=== PATIENT | female | born 1945 | race Caucasian/White ===

== ENCOUNTER 2016-08-26 22:05 | Emergency (ER) | payer MEDICARE ==
--- NOTE | 2016-08-27 00:54 | ERNOTE ---
Medical Problem HPI - General Chief Complaint: General Assessment Time Seen by Provider: 08/27/16 00:53 Source: patient Exam Limitations: no limitations - Immun/Allergies/Home Medications Immunizations: IMMUNIZATION HX Immunizations Up to Date Yes History of Influenza Vaccine Yes Hx Pneumococcal Vaccination Yes Allergies/Adverse Reactions: Allergies Latex, Natural Rubber Allergy (Unknown, Verified 07/20/15 13:24) acetaminophen [From Percocet] Adverse Reaction (Mild, Verified 07/20/15 13:24) Vomiting codeine Adverse Reaction (Mild, Verified 07/20/15 13:24) n/v hydrocodone bitartrate [From Vicodin] Adverse Reaction (Mild, Verified 07/20/15 13:24) n/v morphine Adverse Reaction (Mild, Verified 07/20/15 13:24) dry heaves oxycodone HCl [From Percocet] Adverse Reaction (Mild, Verified 07/20/15 13:24) Vomiting propoxyphene HCl [From Darvon] Adverse Reaction (Mild, Verified 07/20/15 13:24) n/v tramadol Adverse Reaction (Mild, Verified 07/20/15 13:24) n/v Home Medications: HOME MEDICATIONS ALPRAZolam [Xanax] 0.25 mg PO BID PRN 06/01/14 [Last Taken 06/26/14] Albuterol Sulfate [Proair Hfa] 2 puff IH Q4H PRN 06/01/14 [Last Taken Unknown] Gabapentin [Neurontin] 300 mg PO TID 06/01/14 [Last Taken 06/26/14] Ibuprofen [Motrin] 800 mg PO DAILY PRN 06/01/14 [Last Taken Unknown] Losartan Potassium [Cozaar] 50 mg PO DAILY 06/01/14 [Last Taken 06/26/14] Metoprolol Succinate [Toprol Xl] 100 mg PO DAILY 06/01/14 [Last Taken 06/27/14] Omeprazole [Prilosec] 40 mg PO BID 06/01/14 [Last Taken 06/26/14] Pravastatin Sodium [Pravachol] 40 mg PO HS 06/01/14 [Last Taken 06/26/14] amLODIPine BESYLATE [Norvasc] 10 mg PO DAILY 06/01/14 [Last Taken 06/26/14] Nabumetone 750 mg PO BID #20 tablet 08/27/16 [Last Taken Unknown] - History of Present History Narrative: Pt states she has had right lower rib pain for about a month. She denies known injury Timing: constant, getting worse Severity: moderate Review of Systems - Review of Systems Constitutional: Absent: recent illness, fever EYE: Present: no symptoms reported ENT: Present: no symptoms reported Respiratory: Present: cough. Absent: shortness of breath Cardiology: Absent: chest pain, palpitations Gastrointestinal/Abdominal: Absent: nausea, vomiting Genitourinary: Present: no symptoms reported Musculoskeletal: Present: back pain, muscle pain Skin: Present: no symptoms reported Neurological: Present: no symptoms reported Endocrine: Present: no symptoms reported Hematologic/Lymphatic: Present: no symptoms reported Psych: Present: no symptoms reported - Patient's Past Medical History Patient History - Medical: Chronic Pain, Other Patient History - Cardiac/Respiratory: COPD Patient History - Cancer: No Hx of Cancer Patient History - Surgical Procedures: Appendectomy, Back Surgery, Cholecystectomy, Hysterectomy Patient History - Other: None - Social History Living Situations: home Psych History: No pertinent hx Smoking Status: Current every day smoker Patient requests Smoking Cessation Consult: No Initiate information on Smoking Cessation: No Alcohol Use: none Drug Use: none - Immunizations Immunizations Up to Date: Yes Hx Pneumococcal Vaccination: Yes History of Influenza Vaccine: Yes Physical Exam - Physical Exam General Appearance: Present: wd/wn, alert, mild distress Eye Exam: Normal inspection: bilateral Neck: Present: normal inspection, nontender, supple Respiratory: Present: no respiratory distress, no accessory muscle use, chest tenderness - right lower condral mass and rib 8/9 laterally are moderately tender Cardiovascular/Chest: Present: regular rate, rhythm, no murmur Back Exam: Present: no vertebral tenderness, decreased range of motion, muscle spasm - right lower ribs Extremity Exam: Present: normal inspection, normal range of motion, no edema Neurological Exam: Present: alert, oriented, normal mood/affect, no motor/ sensory deficits Skin Exam: Present: normal color, warm/dry Lymphatic Exam: Present: no adenopathy ED Progress - Vital Signs Vital Signs: Vital Signs 08/26/16 08/26/16 22:19 23:20 Temperature 36.5 C Pulse Rate 59 L 54 L Respiratory 20 18 Rate Blood Pressure 154/81 118/67 O2 Sat by Pulse 96 96 Oximetry - Progress/Reassessment Chief Complaint: General Assessment Departure - Departure Clinical Impression: Costochondritis, acute Disposition: Home Follow Up Needed Condition: Good Instructions: Costochondritis, [id number] Additional Instructions: Stop the ibuprofen and begin taking the prescription medication regularly. See your regular doctor in 1-2 weeks to see how well you are progressing Prescriptions: Nabumetone 750 mg PO BID #20 tablet
[2016-08-27] MEDS ORDERED: KETOROLAC TROMETHAMINE 60 MG/2 ML VIAL IM ONE ×2 (01:11→01:21)
[2016-08-27 01:23] VITALS: BP 138/70
== END 2016-08-27 01:25 | disposition home or self-care (01) ==
LOC: ER 22:05
DX: M94.0 Chondrocostal junction syndrome [Tietze] (principal); J44.9 Chronic obstructive pulmonary disease, unspecified; F17.200 Nicotine dependence, unspecified, uncomplicated

== ENCOUNTER 2016-12-16 16:50 | Emergency (ER) | payer MEDICARE ==
[2016-12-16 17:05] VITALS: BP 144/73
--- NOTE | 2016-12-16 17:33 | ERNOTE ---
Integumentary HPI - Narrative Date of Service: 12/16/16 - General Presenting Symptoms: other - Bee sting Time Seen by Provider: 12/16/16 17:16 Source: patient, RN notes reviewed Exam Limitations: no limitations - Immun/Allergies/Home Medications Immunizations: IMMUNIZATION HX Immunizations Up to Date Yes History of Influenza Vaccine Yes Hx Pneumococcal Vaccination Yes Allergies/Adverse Reactions: Allergies Allergy/AdvReac Type Severity Reaction Status Date / Time Latex, Natural Rubber Allergy Unknown Verified 12/16/16 17:06 acetaminophen [From Percocet] AdvReac Mild Vomiting Verified 12/16/16 17:06 codeine AdvReac Mild n/v Verified 12/16/16 17:06 hydrocodone bitartrate AdvReac Mild n/v Verified 12/16/16 17:06 [From Vicodin] morphine AdvReac Mild dry heaves Verified 12/16/16 17:06 oxycodone HCl [From Percocet] AdvReac Mild Vomiting Verified 12/16/16 17:06 propoxyphene HCl AdvReac Mild n/v Verified 12/16/16 17:06 [From Darvon] tramadol AdvReac Mild n/v Verified 12/16/16 17:06 Home Medications: HOME MEDICATIONS ALPRAZolam [Xanax] 0.25 mg PO BID PRN 06/01/14 [Last Taken 06/26/14] Albuterol Sulfate [Proair Hfa] 2 puff IH Q4H PRN 06/01/14 [Last Taken Unknown] Gabapentin [Neurontin] 300 mg PO TID 06/01/14 [Last Taken 06/26/14] Ibuprofen [Motrin] 800 mg PO DAILY PRN 06/01/14 [Last Taken Unknown] Metoprolol Succinate [Toprol Xl] 100 mg PO DAILY 06/01/14 [Last Taken 06/27/14] Omeprazole [Prilosec] 40 mg PO BID 06/01/14 [Last Taken 06/26/14] Pravastatin Sodium [Pravachol] 40 mg PO HS 06/01/14 [Last Taken 06/26/14] amLODIPine BESYLATE [Norvasc] 10 mg PO DAILY 06/01/14 [Last Taken 06/26/14] Pravastatin Sodium 40 mg PO DAILY 12/16/16 [Last Taken Unknown] - History of Present Illness Narrative: 70 year old female ambulatory to the ED for bee stings that occurred earlier today while she was doing yard work. She was stung in the left axilla and near the left elbow. She took Benadryl. She became concerned a little while ago when she had a tingling sensation shoot from her arm into the left side of her face. This has resolved. She denies any difficulty breathing or sensation of edema in her mouth or airway. Location: Reports: upper extremity - Left Quality: Reports: painful Exposure: Reports: bee/wasp sting Associated Symptoms: Denies: blisters, rash, hives, swelling/mass/lumps, edema, fever Prior Treatment: Denies: recently seen Review of Systems - Review of Systems Constitutional: Absent: recent illness, fatigue, malaise EYE: Present: no symptoms reported ENT: Absent: nose congestion, throat swelling Respiratory: Absent: shortness of breath, cough, wheezing, stridor Cardiology: Absent: chest pain, syncope Gastrointestinal/Abdominal: Absent: nausea, vomiting Genitourinary: Present: no symptoms reported Musculoskeletal: Absent: joint pain, joint swelling Skin: Present: lesions. Absent: rash, lumps Neurological: Absent: headache, dizziness/light-headedness, weakness, numbness Endocrine: Present: no symptoms reported Hematologic/Lymphatic: Present: no symptoms reported Psych: Present: no symptoms reported - Patient's Past Medical History Patient History - Medical: Chronic Pain, Other Patient History - Cardiac/Respiratory: COPD, Hypertension Patient History - Cancer: No Hx of Cancer Patient History - Surgical Procedures: Appendectomy, Back Surgery, Cholecystectomy, Hysterectomy Patient History - Other: None LMP (females 10-50): post - Social History Living Situations: home Psych History: Hx of Anxiety, Current tx/ever been on anti-depressants or anti- anxiety meds Smoking Status: Current every day smoker Alcohol Use: none Drug Use: none - Immunizations Immunizations Up to Date: Yes Hx Pneumococcal Vaccination: Yes History of Influenza Vaccine: Yes Physical Exam - Physical Exam General Appearance: Present: wd/wn, alert, no apparent distress Head Exam: Present: normal inspection. Absent: swelling Eye Exam: Normal inspection: bilateral Ears, Nose, Throat: Present: normal ENT inspection, normal pharynx. Absent: pharyngeal swelling Neck: Present: normal inspection, nontender, supple Respiratory: Present: no respiratory distress, normal breath sounds, no accessory muscle use, lungs clear Cardiovascular/Chest: Present: regular rate, rhythm, no murmur Extremity Exam: Present: normal inspection, normal range of motion, no edema Neurological Exam: Present: alert, oriented, normal mood/affect, no motor/ sensory deficits Skin Exam: Present: normal color, warm/dry, other - Erythematous papule in left axilla and near left elbow, appearance consistent with bee sting ED Progress - Vital Signs Patient's Vital Signs:: I have reviewed the patient's vital signs. Vital Signs: Vital Signs 12/16/16 16:58 Temperature 36.7 C Pulse Rate 60 Respiratory 16 Rate Blood Pressure 144/73 O2 Sat by Pulse 97 Oximetry - Progress/Reassessment Chief Complaint: Insect Bite Progress:: Unchanged Plan - Plan Plan: Reassured patient that her current symptoms are normal and not any indication of an allergy to bees. Uncertain of etiology of the tingling sensation she had in her face, but it does not sound as thought it is indicative of anything concerning. Instructed to use ice and use topical benadryl and steroid creams. Departure Clinical Impression: Bee sting Qualifiers: Encounter type: initial encounter Injury intent: undetermined intent Qualified Code(s): T63.444A - Toxic effect of venom of bees, undetermined, initial encounter - Departure Disposition: Home self-care Condition: Good Instructions: Bee, Wasp, or Hornet Sting Additional Instructions: Ice to effected areas as needed Benadryl cream and cortisone 10 cream will help pain and itching resolve faster Referrals: Nelli Voss MD [Primary Care Provider] -
== END 2016-12-16 17:45 | disposition home or self-care (01) ==
LOC: ER 16:50
DX: T63.444A Toxic effect of venom of bees, undetermined, initial encounter (principal); F17.200 Nicotine dependence, unspecified, uncomplicated; J44.9 Chronic obstructive pulmonary disease, unspecified; I10 Essential (primary) hypertension; F41.9 Anxiety disorder, unspecified

== ENCOUNTER 2019-05-11 10:07 | Observation (INO) ==
--- NOTE | 2019-05-11 10:43 | ERNOTE ---
Back Pain ER HPI Date of Service: 05/11/19 Presenting Symptoms: injury/pain to back Time Seen by Provider: 05/11/19 10:42 Source: patient, family, RN notes reviewed, past records Exam Limitations: no limitations Immunizations: IMMUNIZATION HX Immunizations Up to Date Yes History of Influenza Vaccine Yes Hx Pneumococcal Vaccination No Allergies/Adverse Reactions: Allergies Latex, Natural Rubber Allergy (Mild, Verified 03/21/19 13:47) Hives, itching gabapentin Adverse Reaction (Intermediate, Verified 03/21/19 13:47) Hallucinations codeine Adverse Reaction (Mild, Verified 03/21/19 13:47) n/v hydrocodone bitartrate [From Vicodin] Adverse Reaction (Mild, Verified 03/21/19 13:47) n/v meloxicam Adverse Reaction (Mild, Verified 03/21/19 13:47) aggravated pain morphine Adverse Reaction (Mild, Verified 03/21/19 13:47) dry heaves oxycodone HCl [From Percocet] Adverse Reaction (Mild, Verified 03/21/19 13:47) Vomiting prednisone Adverse Reaction (Mild, Verified 03/21/19 13:47) "thought her head was going to blow off" propoxyphene HCl [From Darvon] Adverse Reaction (Mild, Verified 03/21/19 13:47) n/v tramadol Adverse Reaction (Mild, Verified 03/21/19 13:47) n/v Home Medications: HOME MEDICATIONS Acetaminophen [Tylenol] 1,000 mg PO Q4H PRN 06/12/18 [Last Taken 06/11/18 20:00 1000 mg] albuterol sulfate 90 mcg/actuation aerosol inhaler 2 puff INHALATION Q4H PRN #1 inhaler 10/25/18 [Last Taken 12/05/18] metoprolol succinate 100 mg tablet,extended release 24 hr 100 mg PO DAILY #90 tab 12/06/18 [Last Taken Unknown] pravastatin 40 mg tablet 40 mg PO HS #90 tab 12/06/18 [Last Taken Unknown] potassium chloride 10 mEq tablet,extended release 10 meq PO DAILY #90 tab 12/22/18 [Last Taken Unknown] amlodipine 10 mg tablet 10 mg PO DAILY #90 tab 12/27/18 [Last Taken Unknown] hydrochlorothiazide 25 mg tablet See Rx Instructions .ROUTE .COMPLEX #30 tablet 01/26/19 [Last Taken Unknown] levothyroxine 50 mcg tablet 50 mcg PO DAILY #90 tab 03/07/19 [Last Taken Unknown] losartan 100 mg tablet 100 mg PO HS #90 tab 03/21/19 [Last Taken Unknown] loratadine 10 mg tablet 10 mg PO DAILY #30 tab 03/28/19 [Last Taken Unknown] alprazolam 0.25 mg tablet 0.25 mg PO BID PRN #30 tab 04/20/19 [Last Taken Unknown] omeprazole 40 mg capsule,delayed release 40 mg PO DAILY #90 cap 05/02/19 [Last Taken Unknown] Cyclobenzaprine HCl [Flexeril] 10 mg PO TID PRN #20 tab 05/10/19 [Last Taken Unknown] Narrative: Chanda is a 73-year-old female brought to the emergency department by her for severe back pain. I saw the patient for this same complaint yesterday. Her pain had improved with Toradol and Norflex IM while in the ED and she was discharged home with Flexeril. She was instructed to take Tylenol and ibuprofen with this. She has been taking all of these without improvement. She reports that her pain is worse today and it wraps around into her chest. She also reports shortness of breath. Date (Duration): 05/09/19 Timing: Reports: constant, getting worse Quality/Severity: Reports: severe Location of pain: Reports: mid back, other - radiating to chest Activities at Onset: Reports: none Recent Injury?: Reports: no Possible Precipitating Factor: Reports: none Modifying Factors - (Improves): Reports: nothing Modifying Factors - (Worsens): Reports: supine position, cough/deep breaths Prior Treament: Reports: recently seen Review of Systems - Review of Systems Constitutional: Absent: recent illness, fever, chills EYE: Present: no symptoms reported ENT: Absent: nose congestion, sore throat Respiratory: Present: shortness of breath, cough Cardiology: Present: chest pain. Absent: palpitations, syncope Gastrointestinal/Abdominal: Absent: nausea, vomiting, abdominal pain Genitourinary: Present: no symptoms reported Musculoskeletal: Present: back pain. Absent: neck pain, joint pain Skin: Absent: rash, lesions Neurological: Absent: headache, dizziness/light-headedness Endocrine: Present: no symptoms reported Hematologic/Lymphatic: Absent: easy bruising, easy bleeding Psych: Present: anxiety Medical History (Last Reviewed 05/11/19 @ 13:24 by Mirella Bowen NP) Hiatal hernia (Chronic) Generalized anxiety disorder with panic attacks (Chronic) COPD (chronic obstructive pulmonary disease) (Chronic) Hyperlipidemia (Chronic) Hypertension (Chronic) GERD (gastroesophageal reflux disease) (Chronic) Wears dentures COPD (chronic obstructive pulmonary disease) Onset Date: ~10/13/12 GERD (gastroesophageal reflux disease) Onset Date: ~10/13/12 Hiatal hernia Onset Date: ~10/13/12 Hyperlipidemia Onset Date: ~10/13/12 Hypertension Onset Date: ~10/13/12 Lymphadenopathy of head and neck Onset Date: ~03/04/16 Osteoporosis Onset Date: ~10/13/12 Plantar fasciitis Onset Date: ~07/22/12 Surgical History: Surgical History (Last Reviewed 05/11/19 @ 13:24 by Mirella Bowen NP) History of appendectomy Onset Date: Unknown History of bilateral cataract extraction Onset Date: 08/20/10 07/09/10-left. 08/20/10-right History of cholecystectomy Onset Date: 11/10/08 Tinclaudia- lap-pradeep w/lysis of Casey-Yvan Jackson adhesions to the liver. History of cleft palate Onset Date: Unknown History of colonoscopy Onset Date: 12/06/18 12/06/18 Bagan-tubular adenoma x3, diverticulosis. Recheck 3 yrs. History of esophagogastroduodenoscopy (EGD) Onset Date: 06/27/14 06/27/14 Tingusabra- clotest negative. Moderate hiatal hernia. History of kyphoplasty Onset Date: 08/27/11 [facility] L2 History of local excision of skin lesion Onset Date: Unknown right arm History of tonsillectomy Onset Date: Unknown History of total abdominal hysterectomy and bilateral salpingo-oophorectomy Onset Date: Unknown Family History: Family History (Last Reviewed 05/11/19 @ 13:26 by Mirella Bowen NP) Brother Hypertension Depression Father , 70 yrs Lung abnormality Mother , 88 yrs CHF (congestive heart failure) Diabetes Alzheimers disease Atherosclerosis Poor circulation Sister , age 69-unknown cause No problems noted. Grandmother Cancer paternal Social History: (Last Reviewed 05/11/19 @ 13:26 by Mirella Bowen NP) Social History: adopted: No foster care: No intermediate: No Marital status: lives independently: No household members: spouse number of children: 1 number of grandchildren: 2 caregiver/support person: No current occupational status: retired Highest education level completed: high school graduate Service: No Tobacco: Smoking Status: Current every day smoker tobacco type: cigarettes Smoking cigarettes per day: 20.0 Smoking packs per day: 1 Alcohol: alcohol intake: never Substance Use: substance use type: does not use Dietary Habits: caffeine: Yes Type: coffee Personal Safety: victim of physical abuse: No victim of emotional abuse: No Physical Exam - Physical Exam General Appearance: Present: wd/wn, alert, moderate distress, anxious Head Exam: Present: normal inspection Eye Exam: Normal inspection: bilateral Neck: Present: normal inspection, nontender, supple, full range of motion Respiratory: Present: chest nontender, lungs clear, accessory muscle use - Tachypneic, shallow resps Cardiovascular/Chest: Present: regular rate, rhythm, normal peripheral pulses, systolic murmur Gastrointestinal/Abdominal: Present: nontender, nondistended, soft Back Exam: Present: no vertebral tenderness, decreased range of motion Extremity Exam: Present: normal inspection, normal range of motion, no edema Neurological Exam: Present: alert, oriented, normal mood/affect, no motor/sensory deficits Skin Exam: Present: normal color, warm/dry Progress - Results and Orders Patient's Lab Results:: I have reviewed the patient's lab results. - Vital Signs Patient's Vital Signs:: I have reviewed the patient's vital signs. Vital Signs: Vital Signs 05/11/19 10:09 Temperature 36.6 C Pulse Rate 75 Respiratory Rate 26 H Blood Pressure 117/71 O2 Sat by Pulse Oximetry 99 - EKG EKG #1 EKG: NSR EKG read: Reviewed by me - X-Ray X-Ray #1 X-Ray: chest Interpretation: Reviewed by me X-ray Comments: No acute cardiopulmonary findings - Progress/Reassessment Chief Complaint: Back Pain Progress:: Improved Progress Note-Subjective: 05/11/19 12:02 Some improvement in pain after Toradol and Norflex. Patient still appears very uncomfortable. Ddimer is mildly elevated but not significantly so when adjusted for age. Slight elevation in troponin as well. EKG was without any acute findings. The patient has multiple allergies/intolerances to pain meds - mostly vomiting. Zofran and Dilaudid ordered for pain. 05/11/19 13:27 The patient's pain did improve with Dilaudid but she occasionally desats into the upper 80s on room air. Her heart rate is also in the 40s at times. Dr. Marley was contacted and she will be admitted to observation status due to her elevated troponin and inability to control her pain at home. Departure Clinical Impression: Chest pain, rule out acute myocardial infarction, Intractable back pain - Departure Disposition: Still a patient Condition: Fair Referrals: Christiana Morales, KATY [Primary Care Provider] -
[2019-05-11] MEDS ORDERED: ORPHENADRINE CITRATE 30 MG/ML VIAL IV ONE (10:51)
[2019-05-11] MEDS ORDERED: KETOROLAC TROMETHAMINE 30 MG/ML VIAL IV ONE (10:51)
[2019-05-11 11:10] LABS: Hematocrit 41.2 % (37.0-47.0); Hemoglobin 14.2 gm/dL (12.5-16.0); Mean Cell Volume 90.7 fl (78-100); Mean Corpuscular Hemoglobin 31.3 pg (27-31); Mean Corpuscular Hgb Conc 34.5 g/dl (32-36); Mean Platelet Volume 11.5 fl (8-12.5); Neutrophil # 6.1 K/mm3 (1.3-6.0); Neutrophil % 70.7 % (42-75.0); Platelet Count 249 K/mm3 (150-450); Red Blood Count 4.54 M/mm3 (4.2-5.4); Red Cell Distribution Width 11.6 % (11.5-14.0); White Blood Count 8.6 K/mm3 (4.0-10.5)
[2019-05-11 11:32] LABS: Albumin * 3.7 gm/dl (3.4-5.0); BUN/Creatinine Ratio 9.5 (9.0-21.6); Bilirubin, Total 0.5 mg/dL (0.0-1.1); Ca. Corrected For Albumin 9.1 mg/dL (8.4-10.2); Calcium * 9.2 mg/dL (7.9-10.9); Carbon Dioxide 27.5 mmol/L (24-32.6); Potassium 3.5 mmol/L (3.4-4.6); Total Protein 7.2 gm/dL (6.2-8.2); Troponin I 0.022 ng/mL (0.00-0.10)
[2019-05-11] MEDS ORDERED: ONDANSETRON HCL/PF 2 MG/ML VIAL IV ONE (11:56)
[2019-05-11] MEDS ORDERED: HYDROmorphone HCL 1 MG/ML DISP.SYRIN IV ONE (11:56)
[2019-05-11 11:57] LABS: Urine Appearance Clear (CLEAR); Urine Bacteria 1+; Urine Bilirubin Negative (NEGATIVE); Urine Blood 5 /ul (NEGATIVE); Urine Color Yellow; Urine Hyaline Cast TRACE /LPF; Urine Ketone Negative (NEGATIVE); Urine Nitrite Negative (NEGATIVE); Urine Protein Negative (NEGATIVE); Urine RBC TRACE /hpf (0-5); Urine Specific Gravity 1.015 SP.GR. (1.005-1.010); Urine Urobilinogen Normal (NORMAL); Urine pH 6.5 pH (5.0-7.0)
[2019-05-11] MEDS ORDERED: ALPRAZolam 0.25 MG TABLET PO PRN (16:38)
[2019-05-11] MEDS ORDERED: ALBUTEROL SULFATE 2.5 MG/0.5 ML VIAL.NEB IH PRN (16:38)
[2019-05-11] MEDS ORDERED: CYCLOBENZAPRINE HCL 10 MG TABLET PO PRN (16:38)
[2019-05-11] MEDS ORDERED: ACETAMINOPHEN 500 MG TABLET PO PRN (16:38)
--- NOTE | 2019-05-11 16:53 | HP ---
Chief Complaint - Chief Complaint Date of Service: 05/11/19 Time of Service: 16:46 Chief Complaint: Chest pain History of Present Illness: Severe chest pain that is wrapping around from anterior to posterior bilaterally but worse on the right side. When the pain is there breathing makes the pain much more intense. She is not aware of any fever or chills. She denies recent coughing but was coughing when I was visiting with her today. Flu screen was negative. Etiology of her chest pain is still uncertain. I will get a CT scan of the chest tomorrow. Initial troponin is just barely elevated. The EKG shows no acute changes. The chest x-ray shows no acute cardiopulmonary circumstance. Medical History (Last Reviewed 05/11/19 @ 14:28 by Dedrick Carey RN) Hiatal hernia (Chronic) Generalized anxiety disorder with panic attacks (Chronic) COPD (chronic obstructive pulmonary disease) (Chronic) Hyperlipidemia (Chronic) Hypertension (Chronic) GERD (gastroesophageal reflux disease) (Chronic) Wears dentures COPD (chronic obstructive pulmonary disease) Onset Date: ~10/13/12 GERD (gastroesophageal reflux disease) Onset Date: ~10/13/12 Hiatal hernia Onset Date: ~10/13/12 Hyperlipidemia Onset Date: ~10/13/12 Hypertension Onset Date: ~10/13/12 Lymphadenopathy of head and neck Onset Date: ~03/04/16 Osteoporosis Onset Date: ~10/13/12 Plantar fasciitis Onset Date: ~07/22/12 Surgical History: Surgical History (Last Reviewed 05/11/19 @ 14:28 by Dedrick Carey RN) History of appendectomy Onset Date: Unknown History of bilateral cataract extraction Onset Date: 08/20/10 07/09/10-left. 08/20/10-right History of cholecystectomy Onset Date: 11/10/08 Tinguely- lap-pradeep w/lysis of Casey-Yvan Jackson adhesions to the liver. History of cleft palate Onset Date: Unknown History of colonoscopy Onset Date: 12/06/18 12/06/18 Bagan-tubular adenoma x3, diverticulosis. Recheck 3 yrs. History of esophagogastroduodenoscopy (EGD) Onset Date: 06/27/14 06/27/14 Tinguely- clotest negative. Moderate hiatal hernia. History of kyphoplasty Onset Date: 08/27/11 [facility] L2 History of local excision of skin lesion Onset Date: Unknown right arm History of tonsillectomy Onset Date: Unknown History of total abdominal hysterectomy and bilateral salpingo-oophorectomy Onset Date: Unknown Family History: Family History (Last Reviewed 05/11/19 @ 14:28 by Dedrick Carey RN) Brother Hypertension Depression Father , 70 yrs Lung abnormality Mother , 88 yrs CHF (congestive heart failure) Diabetes Alzheimers disease Atherosclerosis Poor circulation Sister , age 69-unknown cause No problems noted. Grandmother Cancer paternal Social History: (Last Reviewed 05/11/19 @ 14:28 by Dedrick Carey RN) Social History: adopted: No foster care: No custodial: No Marital status: lives independently: No household members: spouse number of children: 1 number of grandchildren: 2 caregiver/support person: No current occupational status: retired Highest education level completed: high school graduate Service: No Tobacco: Smoking Status: Current every day smoker tobacco type: cigarettes Smoking cigarettes per day: 20.0 Smoking packs per day: 1 Alcohol: alcohol intake: never Substance Use: substance use type: does not use Dietary Habits: caffeine: Yes Type: coffee Personal Safety: victim of physical abuse: No victim of emotional abuse: No Review Of Systems (GEN) - Review of Systems Generalized/Overall Review: Present: No Symptoms Reported EENTM: Present: No Symptoms Reported Respiratory: Present: Cough, Other - Bilateral chest pain right greater than left Cardiac: Present: No Symptoms Reported Abdominal: Present: No Symptoms Reported Genitourinary: Present: No Symptoms Reported Musculoskeletal: Present: No Symptoms Reported Neurological: Present: No Symptoms Reported Skin: Present: No Symptoms Reported Endocrine: Present: No Symptoms Reported Misc: All systems neg except as marked Immunizations: IMMUNIZATION HX Immunizations Up to Date Yes History of Influenza Vaccine Yes Hx Pneumococcal Vaccination No Allergies/Adverse Reactions: Allergies Allergy/AdvReac Type Severity Reaction Status Date / Time Latex, Natural Rubber Allergy Mild Hives, Verified 05/11/19 14:32 itching gabapentin AdvReac Intermediate Hallucinati Verified 05/11/19 14:32 ons codeine AdvReac Mild n/v Verified 05/11/19 14:32 hydrocodone bitartrate AdvReac Mild n/v Verified 05/11/19 14:32 [From Vicodin] meloxicam AdvReac Mild Vomiting Verified 05/11/19 14:32 morphine AdvReac Mild dry heaves Verified 05/11/19 14:32 oxycodone HCl [From Percocet] AdvReac Mild Vomiting Verified 05/11/19 14:32 prednisone AdvReac Mild "thought Verified 05/11/19 14:32 her head was going to blow off" propoxyphene HCl AdvReac Mild n/v Verified 05/11/19 14:32 [From Darvon] tramadol AdvReac Mild n/v Verified 05/11/19 14:32 Home Medications: HOME MEDICATIONS Acetaminophen [Tylenol] 1,000 mg PO Q4H PRN 06/12/18 [Last Taken 06/11/18 20:00 1000 mg] albuterol sulfate 90 mcg/actuation aerosol inhaler 2 puff INHALATION Q4H PRN #1 inhaler 10/25/18 [Last Taken 12/05/18] metoprolol succinate 100 mg tablet,extended release 24 hr 100 mg PO DAILY #90 tab 12/06/18 [Last Taken Unknown] pravastatin 40 mg tablet 40 mg PO HS #90 tab 12/06/18 [Last Taken Unknown] potassium chloride 10 mEq tablet,extended release 10 meq PO DAILY #90 tab 12/22/18 [Last Taken Unknown] amlodipine 10 mg tablet 10 mg PO DAILY #90 tab 12/27/18 [Last Taken Unknown] levothyroxine 50 mcg tablet 50 mcg PO DAILY #90 tab 03/07/19 [Last Taken Unknown] losartan 100 mg tablet 100 mg PO HS #90 tab 03/21/19 [Last Taken Unknown] loratadine 10 mg tablet 10 mg PO DAILY #30 tab 03/28/19 [Last Taken Unknown] alprazolam 0.25 mg tablet 0.25 mg PO BID PRN #30 tab 04/20/19 [Last Taken Unknown] omeprazole 40 mg capsule,delayed release 40 mg PO DAILY #90 cap 05/02/19 [Last Taken Unknown] Cyclobenzaprine HCl [Flexeril] 10 mg PO TID PRN #20 tab 05/10/19 [Last Taken Unknown] Hydrochlorothiazide [Hydrodiuril] 25 mg PO DAILY 05/11/19 [Last Taken Unknown] Exam - Exam Vital Signs: Vital Signs - Last Taken Temp 36.4 C 05/11/19 13:53 Pulse 60 05/11/19 13:53 Resp 24 H 05/11/19 13:53 BP 148/68 05/11/19 13:53 Pulse Ox 95 05/11/19 13:45 Constitutional: Present: Alert, Oriented x3, Cooperative, Well developed, Well nourished, Mild distress ENT Exam: Present: normal ENT inspection, hearing grossly normal, pharynx normal, TMs normal Eye Exam: bilateral eye: normal inspection, PERRL, EOMI Neck: Present: non-tender, full range of motion, supple Back Exam: Present: normal inspection, no CVA tenderness, no vertebral tenderness Breasts: Present: Exam deferred Respiratory: Present: chest non-tender, lungs clear, normal breath sounds, no respiratory distress, no accessory muscle use Cardiovascular/Chest: Present: normal peripheral pulses, regular rate, rhythm, no chest tenderness, no edema, no gallop, no JVD, no murmur, no rub Peripheral Pulses: carotid (R): 2+, carotid (L): 2+, radial (R): 2+, radial (L): 2+ Abdomen: Present: Normal bowel sounds, soft, nontender, nondistended, no rebound tenderness, no hepatospenomegaly, no masses, obese - BMI 30.4 /Rectal: Present: Exam deferred, External genitalia normal Extremity: Present: normal range of motion, non-tender, normal inspection, no pedal edema, no calf tenderness, normal capillary refill Skin Exam: Present: normal color, warm/dry, no cyanosis Lymphatic: Present: no adenopathy Neurologic: Present: power wheelchair mechanic II-XII nml as tested, normal cerebellar test, no motor/sensory deficits, alert, normal mood/affect Appearance: Present: appropriate appearance, appropriate insight, neat Eye contact: Present: cooperative, good eye contact, normal speech Thoughts: Present: normal thought pattern, no apparent hallucination Diagnostic Studies: Abnormal Lab Results 05/11/19 05/11/19 05/11/19 Range/Units 11:00 11:00 11:00 MCH 31.3 H (27-31) pg Lymphocytes % 18.3 L (20-51) % Neutrophils # 6.1 H (1.3-6.0) K/mm3 D-Dimer 0.52 H (0.19-0.49) ug/mL Est GFR (Non-Af Amer) 54 L D (60-130) mL/min Urine Blood (NEGATIVE) /ul Ur Leukocyte Esterase (NEGATIVE) /ul Urine WBC (0-5) /hpf Ur Epithelial Cells (0-5) /hpf Urine Bacteria (NONE) 05/11/19 Range/Units 11:40 MCH (27-31) pg Lymphocytes % (20-51) % Neutrophils # (1.3-6.0) K/mm3 D-Dimer (0.19-0.49) ug/mL Est GFR (Non-Af Amer) (60-130) mL/min Urine Blood 5 H (NEGATIVE) /ul Ur Leukocyte Esterase 25 H (NEGATIVE) /ul Urine WBC 5-10 H (0-5) /hpf Ur Epithelial Cells 5-10 H (0-5) /hpf Urine Bacteria 1+ H (NONE) Laboratory Results WBC 8.6 K/mm3 (4.0-10.5) 05/11/19 11:00 RBC 4.54 M/mm3 (4.2-5.4) 05/11/19 11:00 Hgb 14.2 gm/dL (12.5-16.0) 05/11/19 11:00 Hct 41.2 % (37.0-47.0) 05/11/19 11:00 MCV 90.7 fl (78-100) 05/11/19 11:00 MCH 31.3 pg (27-31) H 05/11/19 11:00 MCHC 34.5 g/dl (32-36) 05/11/19 11:00 RDW 11.6 % (11.5-14.0) 05/11/19 11:00 Plt Count 249 K/mm3 (150-450) 05/11/19 11:00 MPV 11.5 fl (8-12.5) 05/11/19 11:00 Immature Gran % (Auto) 0.30 % (0.001-0.429) 05/11/19 11:00 Immature Gran # (Auto) 0.03 K/mm3 (0.000-0.0310) 05/11/19 11:00 Neutrophils % 70.7 % (42-75.0) 05/11/19 11:00 Lymphocytes % 18.3 % (20-51) L 05/11/19 11:00 Monocytes % 8.5 % (0.0-9) 05/11/19 11:00 Eosinophils % 1.7 % (0.0-3.0) 05/11/19 11:00 Basophils % 0.5 % (0.0-1.0) 05/11/19 11:00 Nucleated RBC % 0.0 k/mm3 (0-1) 05/11/19 11:00 Neutrophils # 6.1 K/mm3 (1.3-6.0) H 05/11/19 11:00 Lymphocytes # 1.57 k/mm3 (1.5-3.5) 05/11/19 11:00 Monocytes # 0.7 k/mm3 (0.0-1.0) 05/11/19 11:00 Eosinophils # 0.2 k/mm3 (0.0-0.7) 05/11/19 11:00 Absolute Basophils 0.0 k/mm3 (0.0-0.1) 05/11/19 11:00 D-Dimer 0.52 ug/mL (0.19-0.49) H 05/11/19 11:00 Sodium 134 mmol/L (132-142) 05/11/19 11:00 Plasma Sodium 134 mmol/L (130-142) 05/11/19 11:00 Potassium 3.5 mmol/L (3.4-4.6) 05/11/19 11:00 Chloride 97 mmol/L (97-106) 05/11/19 11:00 Carbon Dioxide 27.5 mmol/L (24-32.6) 05/11/19 11:00 Anion Gap 13.0 mmol/L (6.8-13.8) 05/11/19 11:00 BUN 10 mg/dL (3-23) 05/11/19 11:00 Creatinine 1.05 mg/dL (0.4-1.4) 05/11/19 11:00 Est GFR (Non-Af Amer) 54 mL/min (60-130) L D 05/11/19 11:00 BUN/Creatinine Ratio 9.5 (9.0-21.6) 05/11/19 11:00 Random Glucose 103 mg/dL (70-110) 05/11/19 11:00 Calcium 9.2 mg/dL (7.9-10.9) 05/11/19 11:00 Calcium Adj for Albumin 9.1 mg/dL (8.4-10.2) 05/11/19 11:00 Total Bilirubin 0.5 mg/dL (0.0-1.1) 05/11/19 11:00 AST 14 U/L (0-48) 05/11/19 11:00 ALT 23 U/L (19-67) 05/11/19 11:00 Alkaline Phosphatase 78 U/L (50-170) 05/11/19 11:00 Troponin I 0.022 ng/mL (0.00-0.10) 05/11/19 11:00 B-Natriuretic Peptide 245 pg/mL (5-325) 05/11/19 11:00 Total Protein 7.2 gm/dL (6.2-8.2) 05/11/19 11:00 Albumin 3.7 gm/dl (3.4-5.0) 05/11/19 11:00 Urine Color Yellow 05/11/19 11:40 Urine Appearance Clear (CLEAR) 05/11/19 11:40 Urine pH 6.5 pH (5.0-7.0) 05/11/19 11:40 Ur Specific [place] 1.015 SP.GR. (1.005-1.010) 05/11/19 11:40 Urine Protein Negative mg/dL (NEGATIVE) 05/11/19 11:40 Urine Glucose (UA) Negative mg/dL (NEGATIVE) 05/11/19 11:40 Urine Ketones Negative mg/dL (NEGATIVE) 05/11/19 11:40 Urine Blood 5 /ul (NEGATIVE) H 05/11/19 11:40 Urine Nitrate Negative (NEGATIVE) 05/11/19 11:40 Urine Bilirubin Negative mg/dl (NEGATIVE) 05/11/19 11:40 Urine Urobilinogen Normal EU/dl (NORMAL) 05/11/19 11:40 Ur Leukocyte Esterase 25 /ul (NEGATIVE) H 05/11/19 11:40 Urine RBC Trace /hpf (0-5) 05/11/19 11:40 Urine WBC 5-10 /hpf (0-5) H 05/11/19 11:40 Ur Epithelial Cells 5-10 /hpf (0-5) H 05/11/19 11:40 Urine Bacteria 1+ (NONE) H 05/11/19 11:40 Hyaline Casts Trace /LPF (NONE) 05/11/19 11:40 Urine Culture Comments Culture to follow 05/11/19 11:40 Influenza Type A Ag Negative (NEGATIVE) 05/11/19 13:19 Influenza Type B Ag Negative (NEGATIVE) 05/11/19 13:19 Assessment/Plan - Narrative Narrative: Manage pain in the due to continuous cardiac monitoring and observation of vital signs through tonight. Chest CT with contrast tomorrow Resume home medications as ordered Tramadol has helped her so is ordered for every 6 hours as needed and she has acetaminophen ordered as well. - Assessment/Plan (1) Thoracic back pain Problem: Acute (2) Chest pain, rule out acute myocardial infarction Problem: Acute (3) COPD (chronic obstructive pulmonary disease) Problem: Chronic Qualifiers: COPD type: chronic bronchitis (4) Hypertension Problem: Chronic Qualifiers: Hypertension type: essential hypertension
[2019-05-11] MEDS ORDERED: PANTOPRAZOLE SODIUM 40 MG TABLET.EC PO SCH (17:00)
[2019-05-11] MEDS: PANTOPRAZOLE SODIUM 40 MG TABLET.EC PO ONE ×2 (17:03→18:06)
[2019-05-11] MEDS ORDERED: PANTOPRAZOLE SODIUM 40 MG TABLET.EC ONE (18:00)
[2019-05-11] MEDS: KETOROLAC TROMETHAMINE 30 MG/ML VIAL IV PRN (18:44)
[2019-05-11] MEDS ORDERED: SIMVASTATIN 20 MG TABLET PO SCH (21:00)
[2019-05-11] MEDS ORDERED: LOSARTAN POTASSIUM 50 MG TABLET PO SCH (21:00)
[2019-05-11] MEDS ORDERED: MORPHINE SULFATE 4 MG/ML SYRG IV PRN (23:46)
[2019-05-11] MEDS ORDERED: MORPHINE SULFATE 10 MG/ML SYRG IV ONE (23:47)
[2019-05-11] MEDS ORDERED: ONDANSETRON HCL/PF 2 MG/ML VIAL IV PRN (23:48)
[2019-05-12 06:27] LABS: Hematocrit 35.8 % (37.0-47.0); Mean Cell Volume 92.3 fl (78-100); Mean Corpuscular Hemoglobin 30.9 pg (27-31); Mean Corpuscular Hgb Conc 33.5 g/dl (32-36); Mean Platelet Volume 11.4 fl (8-12.5); Neutrophil # 5.6 K/mm3 (1.3-6.0); Neutrophil % 68.4 % (42-75.0); Platelet Count 202 K/mm3 (150-450); Red Blood Count 3.88 M/mm3 (4.2-5.4); Red Cell Distribution Width 11.9 % (11.5-14.0); White Blood Count 8.2 K/mm3 (4.0-10.5)
[2019-05-12 06:44] LABS: Albumin * 3.2 gm/dl (3.4-5.0); Anion Gap 12.8 mmol/L (6.8-13.8); BUN/Creatinine Ratio 12.7 (9.0-21.6); Bilirubin, Total 0.5 mg/dL (0.0-1.1); Ca. Corrected For Albumin 8.7 mg/dL (8.4-10.2); Calcium * 8.4 mg/dL (7.9-10.9); Carbon Dioxide 27.4 mmol/L (24-32.6); Potassium 3.2 mmol/L (3.4-4.6); Total Protein 6.1 gm/dL (6.2-8.2)
[2019-05-12] MEDS ORDERED: PANTOPRAZOLE SODIUM 40 MG TABLET.EC PO SCH ×2 (07:00)
[2019-05-12] MEDS ORDERED: LEVOTHYROXINE SODIUM 50 MCG TABLET PO SCH (07:00)
[2019-05-12] MEDS: KETOROLAC TROMETHAMINE 30 MG/ML VIAL IV PRN (08:43)
[2019-05-12] MEDS ORDERED: amLODIPine BESYLATE 10 MG TABLET PO SCH (09:00)
[2019-05-12] MEDS ORDERED: POTASSIUM CHLORIDE 10 MEQ TABLET.SA PO SCH (09:00)
[2019-05-12] MEDS ORDERED: METOPROLOL SUCCINATE 100 MG TABLET.SA PO SCH (09:00)
[2019-05-12] MEDS ORDERED: POTASSIUM CHLORIDE 20 MEQ TABLET.SA PO SCH (09:00)
[2019-05-12] MEDS ORDERED: LORATADINE 10 MG TABLET PO SCH (09:00)
[2019-05-12] MEDS ORDERED: HYDROCHLOROTHIAZIDE 25 MG TABLET PO SCH (09:00)
[2019-05-12] MEDS ORDERED: MORPHINE SULFATE 10 MG/0.5 ML SYRINGE PO PRN (09:26)
--- NOTE | 2019-05-12 09:43 | PN ---
Subjective - Date and Time Seen Date: 05/12/19 Time: 09:32 Subjective Narrative: Chanda had increased and severe back pain again last night. She was given morphine 5 mg IV push which relieved her pain. She then rested well until this morning. She is having some discomfort this morning on rounds. On examining her spine she is very tender around T4 and around L1 when pressure is placed directly on the spinous processes. X-rays have been negative for compression injuries and there is no trauma history. She is scheduled for a CT scan of the chest this morning. I will add on a CT scan of the thoracic and lumbar spine. I will also order a serum protein electrophoresis to rule out myeloma. I will start her on regular release morphine 10 mg every 4 hours as needed pain and try to establish a narcotic requirement for her to go home. She is an observation patient. Objective - Review of Systems Generalized/Overall Review: Reports: No Symptoms Reported EENTM: Reports: No Symptoms Reported Respiratory: Reports: No Symptoms Reported Cardiac: Reports: No Symptoms Reported Abdominal: Reports: No Symptoms Reported Genitourinary Symptoms: Reports: No Symptoms Reported Musculoskeletal Complaints: Reports: Back Pain - Thoracic and lumbar spine with focal tenderness over approximately T4 and L1. Neurological: Reports: No Symptoms Reported Skin: Reports: No Symptoms Reported Endocrine: Reports: No Symptoms Reported - Vitals Vitals: Last Vital Signs Temp 36.8 C 05/12/19 06:00 Pulse 62 05/12/19 07:55 Resp 16 05/12/19 06:00 BP 134/63 05/12/19 06:00 Pulse Ox 90 L 05/12/19 06:00 - Abnormal Lab Findings Abnormal Lab Findings: Abnormal Lab Results 05/11/19 05/11/19 05/11/19 Range/Units 11:00 11:00 11:00 RBC (4.2-5.4) M/mm3 Hgb (12.5-16.0) gm/dL Hct (37.0-47.0) % MCH 31.3 H (27-31) pg Lymphocytes % 18.3 L (20-51) % Monocytes % (0.0-9) % Neutrophils # 6.1 H (1.3-6.0) K/mm3 D-Dimer 0.52 H (0.19-0.49) ug/mL Potassium (3.4-4.6) mmol/L Est GFR (Non-Af Amer) 54 L D (60-130) mL/min Total Protein (6.2-8.2) gm/dL Albumin (3.4-5.0) gm/dl Urine Blood (NEGATIVE) /ul Ur Leukocyte Esterase (NEGATIVE) /ul Urine WBC (0-5) /hpf Ur Epithelial Cells (0-5) /hpf Urine Bacteria (NONE) 05/11/19 05/12/19 05/12/19 Range/Units 11:40 06:22 06:22 RBC 3.88 L (4.2-5.4) M/mm3 Hgb 12.0 L (12.5-16.0) gm/dL Hct 35.8 L (37.0-47.0) % MCH (27-31) pg Lymphocytes % 18.2 L (20-51) % Monocytes % 10.8 H (0.0-9) % Neutrophils # (1.3-6.0) K/mm3 D-Dimer (0.19-0.49) ug/mL Potassium 3.2 L (3.4-4.6) mmol/L Est GFR (Non-Af Amer) 52 L (60-130) mL/min Total Protein 6.1 L (6.2-8.2) gm/dL Albumin 3.2 L (3.4-5.0) gm/dl Urine Blood 5 H (NEGATIVE) /ul Ur Leukocyte Esterase 25 H (NEGATIVE) /ul Urine WBC 5-10 H (0-5) /hpf Ur Epithelial Cells 5-10 H (0-5) /hpf Urine Bacteria 1+ H (NONE) - EKG/Xray Findings EKG: NSR EKG read: Reviewed by me XRAY: chest Interpretation: Reviewed by me - Exam Constitutional: Present: Alert, Oriented x3, Cooperative, Well developed, Well nourished, Mild distress, Elderly, Morbidly obese ENT Exam: Present: normal ENT inspection, hearing grossly normal, pharynx normal Neck: Present: non-tender, full range of motion Breasts: Present: Exam deferred Respiratory: Present: chest non-tender, lungs clear, normal breath sounds, no respiratory distress, no accessory muscle use, decreased breath sounds Cardiovascular/Chest: Present: normal peripheral pulses, regular rate, rhythm, no chest tenderness, no edema, no gallop, no JVD, no murmur, no rub Abdomen: Present: Normal bowel sounds, soft, nontender, nondistended, no rebound tenderness, no hepatospenomegaly, no masses /Rectal: Present: Exam deferred Extremity: Present: normal range of motion, non-tender, normal inspection, no pedal edema, no calf tenderness, normal capillary refill Skin Exam: Present: normal color, warm/dry Lymphatic: Present: no adenopathy Neurologic: Present: manager investment banking II-XII nml as tested Appearance: Present: appropriate appearance Eye contact: Present: cooperative, good eye contact, normal speech Thoughts: Present: normal thought pattern, no apparent hallucination Assessment/Plan Plan Narrative: 1. CT of the chest with contrast today 2. CT thoracic and lumbar spines today 3. Add morphine 10 mg every 4 hours as needed pain - Problems/Diagnosis (1) Lumbar spine pain Problem: Acute Narrative: Focally tender over approximately L1 (2) Thoracic back pain Problem: Acute Qualifiers: Chronicity: acute Back pain laterality: midline Qualified Code(s): M54.6 - Pain in thoracic spine (3) Chest pain, rule out acute myocardial infarction Problem: Ruled-out (4) COPD (chronic obstructive pulmonary disease) Problem: Chronic Qualifiers: COPD type: chronic bronchitis (5) Hypertension Problem: Chronic Qualifiers: Hypertension type: essential hypertension
--- NOTE | 2019-05-12 15:46 | DS ---
(1) Compression fracture of T8 vertebra Problem: Acute Qualifiers: Encounter type: initial encounter Qualified Code(s): S22.060A - Wedge compression fracture of T7-T8 vertebra, initial encounter for closed fracture (2) Lumbar spine pain Problem: Acute (3) Thoracic back pain Problem: Acute Qualifiers: Chronicity: acute Back pain laterality: midline Qualified Code(s): M54.6 - Pain in thoracic spine (4) Chest pain, rule out acute myocardial infarction Problem: Ruled-out (5) COPD (chronic obstructive pulmonary disease) Problem: Chronic Qualifiers: COPD type: chronic bronchitis (6) Hypertension Problem: Chronic Qualifiers: Hypertension type: essential hypertension (7) Osteoporosis Problem: Acute Qualifiers: Osteoporosis type: age-related Presence of current pathological fracture: with current pathological fracture Encounter type: subsequent encounter Fracture healing: with routine healing Qualified Code(s): M80.00XD - Age- related osteoporosis with current pathological fracture, unspecified site, subsequent encounter for fracture with routine healing (8) Compression fracture Problem: Chronic Date of Discharge:: 05/12/19 Hospital Course: Chanda Mcgovern presented with chief complaint of chest pain radiating around both sides but worse on the right side. It would hurt more when she would take a deep breath. At times the pain would become excruciating and cause extreme tenseness and anxiety. The cause of the pain was not immediately clear. On examining the spine however she was focally tender in 3 areas which was about T4 T8 and L1. CT of the chest with contrast was ordered and CT of the thoracic and lumbar spine was ordered. She has an acute fracture of T8 that is compressed and estimated 40%. She has old compression fractures of T11-T12 and L2. So this is her fourth compression fracture. She has had a previous kyphoplasty of L2 but she still has focal pain there. I discussed getting another kyphoplasty done for this T8 injury and she is in agreement to do so. That will be scheduled on an outpatient basis preceded by an MRI under anesthesia which will be all be done at [place]. Procedures Performed: none Plan of Treatment: schedule for kyphoplasty and an MRI under anesthesia at [place]. Health Concerns: Osteoporosis with spontaneous compression fractures Results and Findings: Pending Mircobiology Results 05/11/19 11:40 Urine,Voided Urine Culture - Preliminary No Pathogens Isolated Lab Pending Results 05/11/19 11:00: WBC 8.6, RBC 4.54, Hgb 14.2, Hct 41.2, MCV 90.7, MCH 31.3 H, MCHC 34.5, RDW 11.6, Plt Count 249, MPV 11.5, Immature Gran % (Auto) 0.30, Immature Gran # (Auto) 0.03, Neutrophils % 70.7, Lymphocytes % 18.3 L, Monocytes % 8.5, Eosinophils % 1.7, Basophils % 0.5, Nucleated RBC % 0.0, Neutrophils # 6.1 H, Lymphocytes # 1.57, Monocytes # 0.7, Eosinophils # 0.2, Absolute Basophils 0.0 05/11/19 11:00: Sodium 134, Plasma Sodium 134, Potassium 3.5, Chloride 97, Carbon Dioxide 27.5, Anion Gap 13.0, BUN 10, Creatinine 1.05, Est GFR (Non-Af Amer) 54 L D, BUN/Creatinine Ratio 9.5, Random Glucose 103, Calcium 9.2, Calcium Adj for Albumin 9.1, Total Bilirubin 0.5, AST 14, ALT 23, Alkaline Phosphatase 78, Troponin I 0.022, B-Natriuretic Peptide 245, Total Protein 7.2, Albumin 3.7 05/11/19 11:00: D-Dimer 0.52 H 05/11/19 11:40: Urine Color Yellow, Urine Appearance Clear, Urine pH 6.5, Ur Specific [place] 1.015, Urine Protein Negative, Urine Glucose (UA) Negative, Urine Ketones Negative, Urine Blood 5 H, Urine Nitrate Negative, Urine Bilirubin Negative, Urine Urobilinogen Normal, Ur Leukocyte Esterase 25 H, Urine RBC Trace, Urine WBC 5-10 H, Ur Epithelial Cells 5-10 H, Urine Bacteria 1+ H, Hyaline Casts Trace, Urine Culture Comments Culture to follow 05/11/19 13:19: Influenza Type A Ag Negative, Influenza Type B Ag Negative 05/12/19 06:22: WBC 8.2, RBC 3.88 L, Hgb 12.0 L, Hct 35.8 L, MCV 92.3, MCH 30.9, MCHC 33.5, RDW 11.9, Plt Count 202, MPV 11.4, Immature Gran % (Auto) 0.20, Immature Gran # (Auto) 0.02, Neutrophils % 68.4, Lymphocytes % 18.2 L, Monocytes % 10.8 H, Eosinophils % 1.9, Basophils % 0.5, Nucleated RBC % 0.0, Neutrophils # 5.6, Lymphocytes # 1.50, Monocytes # 0.9, Eosinophils # 0.2, Absolute Basophils 0.0 05/12/19 06:22: Sodium 137, Plasma Sodium 137, Potassium 3.2 L, Chloride 100, Carbon Dioxide 27.4, Anion Gap 12.8, BUN 14, Creatinine 1.10, Est GFR (Non-Af Amer) 52 L, BUN/Creatinine Ratio 12.7, Random Glucose 104, Calcium 8.4, Calcium Adj for Albumin 8.7, Total Bilirubin 0.5, AST 14, ALT 22, Alkaline Phosphatase 76, Total Protein 6.1 L, Albumin 3.2 L Discharge Location: Home Disposition: Home self-care Condition: Fair Discharge Activity: Activity as tolerated Discharge Diet: General/regular food Referrals: Christiana Morales FNP [Primary Care Provider] - Additional Patient Instructions (free text): See Dr. Marley in the office within 2 weeks. Complete Home Medications List: Complete Home Medication List: Acetaminophen [Tylenol] 1,000 mg PO Q4H PRN 06/12/18 albuterol sulfate 90 mcg/actuation aerosol inhaler 2 puff INHALATION Q4H PRN #1 inhaler 10/25/18 metoprolol succinate 100 mg tablet,extended release 24 hr 100 mg PO DAILY #90 tab 12/06/18 pravastatin 40 mg tablet 40 mg PO HS #90 tab 12/06/18 potassium chloride 10 mEq tablet,extended release 10 meq PO DAILY #90 tab 12/22/18 amlodipine 10 mg tablet 10 mg PO DAILY #90 tab 12/27/18 levothyroxine 50 mcg tablet 50 mcg PO DAILY #90 tab 03/07/19 losartan 100 mg tablet 100 mg PO HS #90 tab 03/21/19 loratadine 10 mg tablet 10 mg PO DAILY #30 tab 03/28/19 alprazolam 0.25 mg tablet 0.25 mg PO BID PRN #30 tab 04/20/19 omeprazole 40 mg capsule,delayed release 40 mg PO DAILY #90 cap 05/02/19 Cyclobenzaprine HCl [Flexeril] 10 mg PO TID PRN #20 tab 05/10/19 Hydrochlorothiazide [Hydrodiuril] 25 mg PO DAILY 05/11/19 Morphine Sulfate 15 mg PO Q6H PRN #60 tab 05/12/19 Ondansetron [Zofran Odt] 8 mg PO Q8H #30 tab.rapdis 05/12/19 Pantoprazole Sodium [Protonix] 40 mg PO DAILY@0700 #30 tablet. 05/12/19 Potassium Chloride [K-Dur] 20 meq PO DAILY tablet. 05/12/19
[2019-05-12 16:28] VITALS: BP 130/60
[2019-05-16 14:49] LABS: Ab Band 1 DNR g/dL (NONE DETECTED); Ab Band 2 DNR g/dL (NONE DETECTED); Ab Band 3 DNR g/dL (NONE DETECTED); Alpha 1 Globulins 0.3 g/dL (0.2-0.3); Alpha 2 Globulins 0.7 g/dL (0.5-0.9); Beta 1 Globulins 0.3 g/dL (0.4-0.6); Gamma Globulins 0.5 g/dL (0.8-1.7); SEP Albumin 3.4 g/dL (3.8-4.8)
== END 2019-05-12 17:15 | disposition home or self-care (01) ==
LOC: ER 10:07 → MS 10:07
PROVIDERS: ADMIT Family Medicine; ATTEND Family Medicine
DX: M54.5 Low back pain; S22.060A Wedge compression fracture of T7-T8 vertebra, initial encounter for closed fracture; J44.9 Chronic obstructive pulmonary disease, unspecified; M54.6 Pain in thoracic spine; I10 Essential (primary) hypertension; M80.00XD Age-related osteoporosis with current pathological fracture, unspecified site, subsequent encounter for fracture with routine healing
CPT/HCPCS: 36415; 71020; 71046; 71260; 72128; 72131; 80053; 81001; 83519; 83880; 84165; 84484; 85025; 85379; 87086; 87400; 87449; 93005; 96374; 96375; 99285; G0378; J2405; Q9967